=== PATIENT | female | born 1990 | race African-American/Black ===

== ENCOUNTER 2021-01-29 18:37 | Observation (INO) | payer OTHER ==
[~2021-01-29] VITALS: Ht 175.3 cm; Wt 74.4 kg
== END 2021-01-29 19:19 | disposition home or self-care (01) ==
LOC: LDRP 18:37
PROVIDERS: ADMIT Obstetrics & Gynecology; ATTEND Obstetrics & Gynecology
DX: O26.892 Other specified pregnancy related conditions, second trimester (principal); R42 Dizziness and giddiness; R06.02 Shortness of breath; F41.9 Anxiety disorder, unspecified; Z3A.26 26 weeks gestation of pregnancy
CPT/HCPCS: 81002; G0378; G0379; 59025

== ENCOUNTER 2021-01-29 19:30 | Emergency (ER) | payer OTHER ==
[~2021-01-29] VITALS: Ht 175.3 cm; Wt 74.4 kg
[2021-01-29 19:31] VITALS: BP 116/64
[2021-01-29 20:20] LABS: Basophils # (auto) 0.1 10 ^3/uL (0-0.2); Basophils % (auto) 0.8 % (0.0-2.0); Eosinophils # (auto) 0.1 10 ^3/uL (0-0.8); Eosinophils % (auto) 1.2 % (0.0-7.0); Hematocrit 34.3 % (36.0-46.0); Hemoglobin 11.3 g/dL (12.2-16.2); Lymphocytes # (auto) 1.7 10 ^3/uL (0.4-5.4); Lymphocytes % (auto) 17.3 % (10.0-50.0); Mean Corpuscular Hemoglobin 28.4 pg (28.0-32.0); Mean Corpuscular Hgb Conc. 32.9 g/dL (32.0-36.0); Mean Corpuscular Volume 86.2 fL (80.0-100.0); Monocytes # (auto) 0.5 10 ^3/uL (0-1.3); Monocytes % (auto) 5.7 % (0.0-12.0); Neutrophils # (auto) 7.3 10 ^3/uL (1.6-8.6); Nucleated Red Blood Cells % 0.1 %; Red Blood Cells 3.98 10^6/uL (4.0-5.20); Red Cell Distribution Width 13.7 % (11.8-14.3); White Blood Cell 9.7 10^3/uL (4.4-10.8)
[2021-01-29 20:40] LABS: Albumin 2.5 g/dL (3.4-5.0); BUN/Creatinine Ratio 22.2; Calcium 8.7 mg/dL (8.5-10.1); Potassium 3.1 mmol/L (3.5-5.1)
[2021-01-29 20:42] LABS: Bilirubin, Total 0.2 mg/dL (0.2-1.0); Total Protein 6.4 g/dL (6.4-8.2)
== END 2021-01-30 02:29 | disposition left against medical advice (07) ==
LOC: ER 19:31
DX: O26.892 Other specified pregnancy related conditions, second trimester (principal); R07.89 Other chest pain; R42 Dizziness and giddiness; R06.02 Shortness of breath; Z3A.26 26 weeks gestation of pregnancy
CPT/HCPCS: 36415; 80053; 84702; 85025; 93005

== ENCOUNTER 2024-01-25 05:39 | Emergency (ER) | payer OTHER ==
[~2024-01-25] VITALS: Ht 175.3 cm; Wt 77.4 kg
[2024-01-25 06:56] LABS: Basophils # (auto) 0.1 10 ^3/uL (0-0.2); Basophils % (auto) 1.2 % (0.0-2.0); Eosinophils # (auto) 0.2 10 ^3/uL (0-0.8); Neutrophils # (auto) 3.4 10 ^3/uL (1.6-8.6); White Blood Cell 7.4 10^3/uL (4.4-10.8)
[2024-01-25 07:03] LABS: Eosinophils % (auto) 2.2 % (0.0-7.0); Hematocrit 36.1 % (36.0-46.0); Lymphocytes # (auto) 3.2 10 ^3/uL (0.4-5.4); Lymphocytes % (auto) 43.6 % (10.0-50.0); Mean Corpuscular Hemoglobin 25.6 pg (28.0-32.0); Mean Corpuscular Hgb Conc. 33.3 g/dL (32.0-36.0); Mean Corpuscular Volume 77.1 fL (80.0-100.0); Monocytes # (auto) 0.6 10 ^3/uL (0-1.3); Monocytes % (auto) 7.4 % (0.0-12.0); Neutrophils % (auto) 45.6 % (37.0-80.0); Nucleated Red Blood Cells % 0.1 %; Platelet Count (auto) 238 10^3/uL (140-450); Red Blood Cells 4.68 10^6/uL (4.0-5.20); Red Cell Distribution Width 18.1 % (11.8-14.3)
[2024-01-25 07:14] LABS: Chloride 107 mmol/L (98-107); Potassium 3.8 mmol/L (3.5-5.1); Sodium 138 mmol/L (136-145)
[2024-01-25 07:15] LABS: Anion Gap 6 (5-15); Calcium 9.5 mg/dL (8.7-10.4); Carbon Dioxide 25 mmol/L (20-30)
[2024-01-25 07:15] LABS: Urine Bacteria FEW /hpf (None Seen); Urine Blood Negative /uL (Negative); Urine Clarity Clear (Clear); Urine Color Light-Yellow (Yellow); Urine Mucus FEW (None Seen); Urine Protein, UAD TRACE (Negative); Urine Specific Gravity 1.029 (1.001-1.035); Urine Urobilinogen Normal (Negative); Urine WBC 2 /hpf (0 - 5)
[2024-01-25 07:20] LABS: BUN/Creatinine Ratio 19.3 (10.0-20.0); Blood Urea Nitrogen 16 mg/dL (9-23); Glucose 89 mg/dL (74-106)
[2024-01-25 08:21] VITALS: BP 113/59; PULSE 66; RESP 16; TEMP 97.8; O2SAT 100
[2024-01-25] MEDS: HYDROcodone-ACET 10/325MG TAB PO ONE (08:21)
== END 2024-01-25 08:24 | disposition home or self-care (01) ==
LOC: ER 05:39
DX: S39.011A Strain of muscle, fascia and tendon of abdomen, initial encounter (principal); X58.XXXA Exposure to other specified factors, initial encounter; Y93.89 Activity, other specified; Y92.89 Other specified places as the place of occurrence of the external cause; Y99.8 Other external cause status
CPT/HCPCS: 36415; 80048; 81001; 85025